=== PATIENT | female | born 1975 | race Caucasian/White ===

== ENCOUNTER 2020-03-01 03:36 | Emergency (ER) | payer OTHER ==
[~2020-03-01] VITALS: Ht 152.4 cm; Wt 54.0 kg
[2020-03-01] MEDS ORDERED: ONDANSETRON 4MG ODT PO ONE (05:00)
[2020-03-01 05:33] LABS: BASOPHILS % 0.9 % (0.0-2.0); EOSINOPHILS % 1.8 % (0.0-5.0); HEMOGLOBIN. 11.9 g/dL (12.0-16.0); LYMPHOCYTES % 28.8 % (20.0-50.0); MEAN CORPUSCULAR HEMOGLOBIN 31.7 pg (28.0-32.0); MEAN CORPUSCULAR VOLUME 93.5 fL (81.0-99.0); MEAN PLATELET VOLUME 9.4 fl (7.4-10.4); MONOCYTES % 5.5 % (2.0-8.0); PLATELET 266 x1000/uL (130-400); RED BLOOD CELL COUNT 3.75 mill/uL (4.2-5.4); RED CELL DISTRIBUTION WIDTH 14.3 % (11.6-14.6)
[2020-03-01 05:38] LABS: CHLORIDE 109 mEq/L (98-107)
[2020-03-01 05:42] LABS: PROTHROMBIN TIME 10.4 sec (9.6-11.0)
[2020-03-01 05:49] LABS: HCG SCREEN NEGATIVE
[2020-03-01] MEDS ORDERED: FAMOTIDINE 20MG/2ML VIAL IV STA (06:28)
[2020-03-01] MEDS ORDERED: MAGNESIUM/ALUMINUM HYDROXIDE/SIMETHICONE 30ML UDC PO ONE (07:15)
[2020-03-01 07:43] LABS: CLARITY URINE CLEAR (CLEAR); COLOR URINE YELLOW (YELLOW); KETONES URINE NEGATIVE (NEGATIVE); LEUKOCYTE ESTERASE URINE NEGATIVE (NEGATIVE); NITRITE URINE NEGATIVE (NEGATIVE); OCCULT BLOOD URINE TRACE (NEGATIVE); PROTEIN URINE NEGATIVE (NEGATIVE); SPECIFIC GRAVITY URINE 1.013 (1.005-1.030); UROBILINOGEN URINE 0.2 E.U./dL (0.2-1.0)
[2020-03-01 10:53] VITALS: BP 101/55
== END 2020-03-01 11:00 | disposition short-term general hospital (02) ==
LOC: ER 04:02 → CANBEDREQ 13:19
DX: K81.9 Cholecystitis, unspecified (principal)
CPT/HCPCS: 36415; 71045; 76705; 80053; 81003; 83690; 83880; 84484; 84703; 85025; 85610; 93005; 99285; Q0162

== ENCOUNTER 2022-09-01 21:20 | Emergency (ER) | payer OTHER ==
[~2022-09-01] VITALS: Ht 144.8 cm; Wt 53.0 kg
[2022-09-01 21:42] VITALS: BP 114/51
[2022-09-02] MEDS ORDERED: ACETAMINOPHEN 325MG TABLET PO ONE (00:30)
[2022-09-02] MEDS ORDERED: ACET-2708 MT (02:34)
== END 2022-09-02 02:55 | disposition home or self-care (01) ==
LOC: ER 21:23
DX: M25.561 Pain in right knee (principal)
CPT/HCPCS: 73562; 99283